=== PATIENT | male | born 1985 | race African-American/Black ===

== ENCOUNTER 2016-10-01 08:14 | Emergency (ER) ==
[2016-10-01 08:26] VITALS: BP 145/73
[2016-10-01 08:49] LABS: MANUAL DIFF NEEDED? NO
[2016-10-01 08:53] LABS: BASO% 0.8 % (0.0-0.8); EOS# 0.09 X1000 (0.0-0.7); EOS% 1.2 % (0.0-10.0); HEMATOCRIT 42.3 % (42.0-52.0); HEMOGLOBIN 14.2 g/dL (14.0-18.0); LYMPH# 2.13 X1000 (1.2-3.4); MCH 29.5 PG (27-31); MCHC 33.6 g/dL (33-37); MCV 87.9 FL (81-99); MONO# 0.44 X1000 (0.11-0.59); MONO% 5.8 % (1.7-9.3); MPV 9.7 FL (7.4-10.4); NEUT% 64.2 % (42.2-75.2); PLT 401 X1000 (130-400); RBC 4.81 XMIL (4.7-6.1)
[2016-10-01 09:11] LABS: AGAP 14; ALBUMIN 4.3 g/dL (3.5-5.0); ALKALINE PHOSPHATASE 100 U/L (32-122); AMYLASE 102 U/L (20-200); BUN 13 mg/dL (8-22); CALCIUM 9.8 mg/dL (8.8-10.2); CHLORIDE 99 mmol/L (98-107); COSMO 272; GOT 21 U/L (10-34); GPT 20 U/L (10-44); LIPASE 54 U/L (13-60); POTASSIUM 3.6 mmol/L (3.5-5.1); SODIUM 136 mmol/L (136-145); TCO2 23 mmol/L (25-35); TOTAL BILIRUBIN 0.31 mg/dL (0.20-1.00); TOTAL PROTEIN 7.6 g/dL (6.3-8.3)
== END 2016-10-01 10:44 | disposition left against medical advice (07) ==
LOC: ED 08:14
DX: M54.9 Dorsalgia, unspecified (principal); R11.2 Nausea with vomiting, unspecified
CPT/HCPCS: 80053; 82150; 83690; 85025